=== PATIENT | female | born 2000 | race Caucasian/White ===

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

== ENCOUNTER → 2018-01-23 12:52 | Outpatient (CLI) | payer OTHER, SELFPAY ==
--- NOTE | 2018-01-23 13:00 | XR_ITS ---
XR hand RT min 3V HISTORY: Right thumb pain ITS.REASON: right hand/ thumb pain ORDERING PHYSICIAN: Jose Manuel Montilla MD PATIENT AGE: 17 years COMPARISON: none available TECHNIQUE: PA, Oblique and Lateral Hand FINDINGS: No fracture or dislocation. No lytic or blastic change. There is normal mineralization.. The joint spaces are well-preserved. No significant degenerative/arthritic changes. No erosive changes evident.. Attention directed to the right thumb reveals no significant nor distal findings here.. IMPRESSION: Negative right hand, No fracture no acute finding
== END ==
PROVIDERS: Visit Provider Orthopaedic Surgery
DX: M79.641 Pain in right hand (principal)
CPT/HCPCS: 73130

== ENCOUNTER 2018-02-27 10:58 | Outpatient (RCR) | payer OTHER, SELFPAY | END 2018-02-27 11:00 | disposition home or self-care (01) | LOC: OT 10:58 | PROVIDERS: Visit Provider Orthopaedic Surgery | DX: G56.01 Carpal tunnel syndrome, right upper limb (principal) | CPT/HCPCS: 97763 ==

== ENCOUNTER → 2018-04-04 08:56 | Outpatient (POV) | payer OTHER, SELFPAY | PROVIDERS: Visit Provider Specialist | DX: G56.01 Carpal tunnel syndrome, right upper limb (principal); R20.2 Paresthesia of skin | CPT/HCPCS: 95886; 95908 ==

== ENCOUNTER → 2018-04-29 09:24 | Outpatient (POV) | payer OTHER, SELFPAY | PROVIDERS: Visit Provider Otolaryngology | DX: Z00.00 Encounter for general adult medical examination without abnormal findings (principal) ==

== ENCOUNTER → 2018-07-14 12:19 | Outpatient (CLI) | payer OTHER, SELFPAY ==
[2018-07-15 13:21] LABS: Anti-Centromere B Antibodies <0.2 AI (0.0-0.9); Anti-Jo-1 <0.2 AI (0.0-0.9); Anti-Smith Antibody <0.2 AI (0.0-0.9); Antichromatin Antibodies <0.2 AI (0.0-0.9); Antiscleroderma-70 Antibodies <0.2 AI (0.0-0.9); RNP Antibodies <0.2 AI (0.0-0.9); Sjogren's Anti-SS-A <0.2 AI (0.0-0.9); Sjogren's Anti-SS-B <0.2 AI (0.0-0.9)
[2018-07-15 16:29] LABS: Anti-Cardiolipin Antibody IgG <9 GPL U/mL (0-14); Anti-DNA (DS) Ab Qn 13 IU/mL (0-9)
[2018-09-05 15:41] LABS: Anti-Cardiolipin Antibody IgM <9
== END ==
PROVIDERS: Visit Provider Specialist
DX: R51 Headache (principal)
CPT/HCPCS: 36415; 86147; 86225; 86235

== ENCOUNTER 2018-12-07 20:58 | Outpatient (CLI) | payer OTHER, SELFPAY ==
[2018-12-07 21:31] VITALS: BP 124/67; PULSE 108; RESP 18; TEMP 36.9; O2SAT 97; BMI 38.0
[2018-12-07 21:44] VITALS: BMI 38.0
[2018-12-07 21:50] LABS: Microscopic, Urine URINE MICROSCOPIC (MICROSCOPIC)
[2018-12-07 22:06] LABS: Appearance,Urine SL CLOUDY (Clear); Blood, Urine Negative (Negative); Color,Urine DK YELLOW (Yellow); Glucose,Urine (UA) Negative (Negative); Ketones,Urine Negative (Negative); Leukocyte Esterase,Urine Negative (Negative); Nitrate,Urine Negative (Negative); Protein,Urine Negative (Negative); Specific Gravity, Urine >= 1.030 (1.005-1.030)
[2018-12-07 22:11] LABS: Bilirubin,Urine Negative (Negative); Mucus,Urine 2+ /lpf; Squamous Epithelial Cell,Urine 20-50 #/hpf (0-5)
[2018-12-07 22:12] LABS: Amphetamine/Metha Screen,Urine Negative ng/mL (<1000); Barbiturates Screen,Urine Negative ng/mL (<200); Benzodiazepines Screen,Urine Negative ng/mL (<200); Cannabinoid Screen,Urine Negative ng/mL (<50); Cocaine Screen,Urine Negative ng/mL (<300); Methadone Screen,Urine Negative ng/mL (<300); Opiate Screen,Urine Negative ng/mL (<300); Phencyclidine Screen,Urine Negative ng/mL (<25)
== END 2018-12-07 23:20 | disposition home or self-care (01) ==
LOC: OBOUT 21:04 → OB 21:05
PROVIDERS: PCP Family Medicine; Visit Provider Nurse Practitioner Obstetrics & Gynecology
DX: O47.03 False labor before 37 completed weeks of gestation, third trimester (principal); Z3A.34 34 weeks gestation of pregnancy
CPT/HCPCS: 59025; 80305; 81001; 96360; 96372

== ENCOUNTER → 2019-03-20 14:48 | Outpatient (CLI) | payer OTHER, SELFPAY ==
--- NOTE | 2019-03-20 14:50 | MR_ITS ---
PROCEDURE: MR HEAD/BRAIN WO CON CLINICAL INDICATION: Migraine Severe constant headache COMPARISON: No exams were available for comparison TECHNIQUE: Routine multiplanar multi echo sequences are performed without gadolinium enhancement. FINDINGS: No midline shift, mass effect, intracranial hemorrhage, or hydrocephalus. No evidence of acute infarction. The cerebellopontine angles, cerebellum and brainstem have an unremarkable appearance. The pituitary, optic chiasm, corpus callosum, and craniocervical junction have an unremarkable appearance. No mastoid effusion or sinus air-fluid level. IMPRESSION: Negative MRI of the brain without contrast Dictated by: Gigi Seo MD 03/20/2019 18:54 Electronically signed by Gigi Seo MD in [place] 03/22/2019 12:44
== END ==
PROVIDERS: PCP Nurse Practitioner Family; Visit Provider Nurse Practitioner Family
DX: G43.919 Migraine, unspecified, intractable, without status migrainosus (principal); R51 Headache
CPT/HCPCS: 70551

== ENCOUNTER 2019-08-07 17:30 | Emergency (ER) | payer OTHER, SELFPAY ==
[2019-08-07 17:32] VITALS: BP 120/64; PULSE 90; RESP 18; O2SAT 100; BMI 34.9
[2019-08-07 18:09] LABS: Microscopic, Urine URINE MICROSCOPIC (MICROSCOPIC)
[2019-08-07 18:11] LABS: Appearance,Urine CLEAR (Clear); Bilirubin,Urine Negative (Negative); Blood, Urine Negative (Negative); Color,Urine YELLOW (Yellow); Glucose,Urine (UA) Negative (Negative); Ketones,Urine Negative (Negative); Leukocyte Esterase,Urine Negative (Negative); Nitrate,Urine Negative (Negative); Protein,Urine Negative (Negative); Specific Gravity, Urine 1.015 (1.005-1.030); Urobilinogen,Urine 0.2 EU/dl (0.2)
[2019-08-07 18:14] LABS: Urine Pregnancy, HCG Qual. Negative (Negative)
[2019-08-07 18:19] LABS: Bacteria,Urine 1+ /lpf
--- NOTE | 2019-08-07 18:40 | HMH.EDGENADL ---
ED Disposition Clinical Impression: Foreign body (FB) in soft tissue, Gastroenteritis, Paresthesias Disposition: Home, Self-Care Condition on Discharge: Good Instructions: DI for Skin Abscess, DI for Viral Gastroenteritis -- Adult Additional Instructions: Please follow-up with your FRONT WORKER to have the implant removed. Prescriptions: ondansetron HCL [Zofran 4mg Tab*] 4 mg PO TID PRN 4 Days #15 tab PRN Reason: Nausea Transmission Status: Pending to [facility] Referrals: Susie Johansen APRN [Primary Care Provider] - - Critical Care Critical Care Time: No Attestation: On 08/07/19, the high probability of a clinically significant, sudden or life threatening deterioration of the following system(s) required my full and direct attention, intervention and personal management. The time I documented below is in addition to time spent performing reported procedures but includes the following listed in this critical care notation. Medical Decision Making - Medical Records Medical records reviewed: Yes: I reviewed the patient's medical records. - Titi Inquiry Pt receiving controlled substance: No Vital Signs: 08/07/19 17:32 Pulse Rate [Radial] 90 Respiratory Rate 18 Blood Pressure [Right Arm] 120/64 Blood Pressure Mean [Right Arm] 82 Blood Pressure Source [Right Arm] Automatic Cuff Blood Pressure Position [Right Arm] Sitting 02 Sat by Pulse Oximetry 100 Oxygen Delivery Method Room Air - Lab Data Lab results reviewed: Yes: I reviewed the patient's lab results. Lab Results 08/07/19 18:04: Urine HCG, Qual Negative 08/07/19 18:04: Urine Color Yellow, Urine Appearance Clear, Urine pH 6.0, Ur Specific Haines 1.015, Urine Protein Negative, Urine Glucose (UA) Negative, Urine Ketones Negative, Urine Blood Negative, Urine Nitrate Negative, Urine Bilirubin Negative, Urine Urobilinogen 0.2, Ur Leukocyte Esterase Negative, Urine RBC 3-5, Urine WBC 10-20, Ur Squamous Epith Cells 10-20, Urine Bacteria 1+ Orders (Tests/Meds): ORDERS Category Date Time Status Urine Culture Stat Micro 08/07/19 18:04 Received - US Data US Images: Upper Extremity (Ultrasound was done by physician at bedside. There was no evidence of abscess in the upper arm. This looks like a normal implant.) - Reevaluation(s) Time: 18:44 (Patient's nausea was much better after p.o. dose of Zofran) General Adult HPI - General Chief complaint: Skin/Abscess/Foreign Body Stated complaint: control inplant issues Time Seen by Provider: 08/07/19 18:41 Mode of Arrival: Wheelchair Source of Information: Patient Limitations: No Limitations Description of Symptoms (Recalled from ER Triage Doc. by RN): States that she had her youngest son 6 months ago and then 5 months ago she had the arm implant control placed. States that since then she has had numbness and tingling from the area and not able to eat or drink very well. - History of Present Illness HPI narrative: 18-year-old female presents the ED with issues per her with the implant that she has been arm for control. She states this was placed 5 months ago right after she had the of her first child. And recently over the last 2 to 3 weeks she states that she feels some pain in the area and she is having some pain that radiates down her arm. She states that she has been to a couple other ERs and they have not done anything for her. She rates the pain on a scale of 10 3 out of 5 and classifies it as a pressure sharp-like sensation. She states there is no alleviating or exacerbating factors. She is also concerned that she may be as well because she has had a lot of nausea and vomiting over the last 3 to 4 days as well. Patient denies any recent fever shakes or chills. Patient denies any cough or shortness of breath. Patient denies any headache or sore throat. - Related Data Home Medications Medication Instructions Recorded Confirmed Ceti
[2019-08-07 18:53] VITALS: BP 120/64; PULSE 90; RESP 18; TEMP 36.7; O2SAT 100
== END 2019-08-07 18:55 | disposition home or self-care (01) ==
PROVIDERS: Emergency Provider Family Medicine; PCP Nurse Practitioner Family
DX: M79.5 Residual foreign body in soft tissue (principal); R20.2 Paresthesia of skin; I10 Essential (primary) hypertension; E10.9 Type 1 diabetes mellitus without complications; F17.210 Nicotine dependence, cigarettes, uncomplicated; Z90.09 Acquired absence of other part of head and neck; F41.8 Other specified anxiety disorders
CPT/HCPCS: 81001; 81025; 87086; 99281; 99282

== ENCOUNTER → 2019-10-27 14:32 | Outpatient (CLI) | payer OTHER, SELFPAY | PROVIDERS: PCP Nurse Practitioner Family; Visit Provider Nurse Practitioner Family | DX: R06.81 Apnea, not elsewhere classified (principal); G47.19 Other hypersomnia; R53.83 Other fatigue; R06.83 Snoring; G43.919 Migraine, unspecified, intractable, without status migrainosus; Z68.35 Body mass index [BMI] 35.0-35.9, adult | CPT/HCPCS: 95806 ==

== ENCOUNTER → 2020-01-18 17:09 | Outpatient (CLI) | payer OTHER, SELFPAY ==
[2020-01-18 18:12] LABS: Coronavirus 19 IgG Antibody Negative (Negative); Coronavirus 19 IgM Antibody Negative (Negative)
== END ==
PROVIDERS: PCP Nurse Practitioner Family; Visit Provider Specialist
DX: Z01.89 Encounter for other specified special examinations (principal)
CPT/HCPCS: 36415; 86328

== ENCOUNTER → 2020-01-19 20:02 | Outpatient (CLI) | payer OTHER, SELFPAY | PROVIDERS: PCP Nurse Practitioner Family; Visit Provider Specialist | DX: R06.81 Apnea, not elsewhere classified (principal); G43.019 Migraine without aura, intractable, without status migrainosus; R06.83 Snoring; G47.19 Other hypersomnia; R53.83 Other fatigue; Z68.34 Body mass index [BMI] 34.0-34.9, adult | CPT/HCPCS: 95810 ==

== ENCOUNTER → 2020-06-14 10:28 | Outpatient (POV) | payer OTHER, SELFPAY | PROVIDERS: Visit Provider Otolaryngology | DX: Z00.00 Encounter for general adult medical examination without abnormal findings (principal) ==

== ENCOUNTER → 2020-06-20 10:30 | Outpatient (CLI) | payer OTHER, SELFPAY ==
--- NOTE | 2020-06-20 10:30 | CT_ITS ---
PROCEDURE: CT HEAD/BRAIN WO CON CLINICAL INDICATION: headache, facial trauma COMPARISON: MR MR HEAD/BRAIN WO CON from 03/20/2019 TECHNIQUE: Axial images obtained. All CT scans at the facility use one or more dose reduction, viz: automated exposure control, ma/kV adjustment per patient size (including targeted exams where dose is matched to indication, i.e. head), or iterative reconstruction technique. FINDINGS: No midline shift, mass effect, intracranial hemorrhage, hydrocephalus, or extra-axial fluid collection is evident. The calvarium has an unremarkable appearance. No mastoid effusion. There is a defect within the medial wall the left orbit consistent with a fracture. There is mild mucosal thickening of the anterior left ethmoid air cells. IMPRESSION: 1. No acute intracranial findings. 2. Medial left orbital wall fracture. This has developed since 03/20/2019 . Dictated by: Gigi Seo MD 06/20/2020 10:55 Gigi Seo MD in [place] 06/20/2020 10:55
--- NOTE | 2020-06-20 10:30 | XR_ITS ---
PROCEDURE: XR ORBIT BILATERAL MIN 4V CLINICAL INDICATION: headache Headache COMPARISON: CT CT HEAD/BRAIN WO CON from 06/20/2020 FINDINGS: No sinus air-fluid level. No definite acute fracture or dislocation. There is a subtle defect within the medial wall of the left orbit. This is better demonstrated on the CT scan and is of unknown age but was not present on a previous MRI 03/20/2019. IMPRESSION: Subtle defect within the medial wall the left orbit consistent with an old fracture. No acute finding apparent. Dictated by: Gigi Seo MD 06/20/2020 12:48 Gigi Seo MD in [place] 06/20/2020 12:48
[2020-06-20 11:00] LABS: Urine Pregnancy, HCG Qual. Negative (Negative)
== END ==
PROVIDERS: PCP Nurse Practitioner Family; Visit Provider Specialist
DX: G44.319 Acute post-traumatic headache, not intractable (principal); R51.9 Headache, unspecified; S09.93XA Unspecified injury of face, initial encounter
CPT/HCPCS: 70200; 70450; 81025

== ENCOUNTER → 2020-09-01 10:34 | Outpatient (CLI) | payer OTHER, SELFPAY ==
[2020-09-01 11:29] LABS: HCG Qualitative, Serum Positive (Negative)
== END ==
PROVIDERS: Visit Provider Nurse Practitioner Family
DX: N92.6 Irregular menstruation, unspecified (principal)
CPT/HCPCS: 36415; 84703

== ENCOUNTER → 2020-11-29 15:31 | Outpatient (CLI) | payer OTHER, SELFPAY | PROVIDERS: PCP Nurse Practitioner Family; Visit Provider Nurse Practitioner Family | DX: R51.9 Headache, unspecified (principal) | CPT/HCPCS: 93225; 93226 ==

== ENCOUNTER → 2021-01-03 14:40 | Outpatient (CLI) | payer OTHER, SELFPAY ==
--- NOTE | 2021-01-03 14:42 | CA_ITS ---
APPROVED REPORT EXAM: Comprehensive 2D, Doppler, and color-flow Echocardiogram Cigarette Filter Inspector: TAISHA Clark, RVS Ht: 5 ft 1 in Wt: 191lbs BSA: 1.85 BP: 124/69 mmHg Indications: Palpitations, 20wk , gest DM, smoker 2D Dimensions Aortic Root 2.46 cm LA Volume 27.80 mL Left Atrium 3.10 cm LA Volume Index 15.00 mL/m2 (M/F) 16-34 LVOT 1.90 cm (M/F) 1.5-2.5 M-Mode Dimensions RVDd 2.35 cm (0.9-2.6) LA Diam 2.96 cm (1.9-4.0) LVDd 5.00 cm (3.5-5.7) Ao Diam 2.62 cm (2.0-3.7) LVDs 3.08 cm (3.5-5.7) IVSd 0.84 cm (0.6-1.1) PWd 0.67 cm (0.6-1.1) EF (Teich) 68.40% EPSs 0.81 cm FS 38.40% EDV (Teich) 118.20 mL TAPSE 2.74 (<1.7) ESV (Teich) 37.30 mL LV Diastology E Decel Time 213.00 (160-240 msec) E/A Ratio 1.48 MED E' 13.20 (< 7 cm/sec) MED A' 11.00 cm/s E'/MED E' Ratio 7.26 (>14) LAT E' 17.90 (<10 cm/sec) LAT A' 7.00 cm/s E/LAT E' Ratio 5.35 (>14) Aortic Valve AoV Peak Alfredo. 159.00 (50-130 cm/s) AO Peak GR. 10.10 mmHg AO Mean GR. 5.00 (<5 mmHg) AO VTI 28.02 (18-25 cm) Mitral Valve MV A Velocity 65.00 (40-130 cm/s) E/A Ratio 1.48 MV Decel. Time 213.00 (160-240 ms) Pulmonary Valve PV Peak Velocity 118.00 (50-150 cm/s) SD End VMAX 143.00 cm/s Left Ventricle Left atrium is normal size, left ventricle is normal size, visually estimated ejection fraction 55% with no regional wall motion abnormality, diastolic parameters are within normal range. Right Ventricle Right atrium and right ventricle are normal size and contractility. Aortic Valve Aortic valve is grossly normal, there is no aortic stenosis or aortic insufficiency. Mitral Valve Mitral valve grossly normal, there is trace mitral regurgitation. Tricuspid Valve Tricuspid valve grossly normal, there is trace tricuspid regurgitation, tricuspid regurgitation jet velocity is inadequate for calculation of the right ventricular systolic pressure. Pulmonic Valve Pulmonic valve is poorly visualized. Great Vessels Aortic root is normal size. Inferior vena cava is normal size with normal inspiratory collapse. Pericardium No significant pericardial effusion noted. Conclusion 1. Normal left ventricular size, preserved left ventricular systolic function, visually estimated ejection fraction 55% with no regional wall motion abnormality, diastolic parameters are within normal range. 2. Trace mitral and tricuspid regurgitation. 3. No significant pericardial effusion noted. 4. Inferior vena cava is normal size with normal inspiratory collapse. Electronically signed by : Russell Orourke MD 01/03/2021 18:17:33
== END ==
PROVIDERS: PCP Nurse Practitioner Family; Visit Provider Internal Medicine Cardiovascular Disease
DX: R00.2 Palpitations (principal); R07.9 Chest pain, unspecified
CPT/HCPCS: 93306